=== PATIENT | female | born 1935 | race Caucasian/White ===

== ENCOUNTER 2016-10-14 11:04 | Outpatient (CLI) | payer MEDICARE | END 2016-10-14 11:05 | disposition home or self-care (01) | DX: E78.5 Hyperlipidemia, unspecified (principal) ==

== ENCOUNTER 2016-12-01 11:53 | Outpatient (CLI) | payer MEDICARE | END 2016-12-01 11:54 | disposition home or self-care (01) | DX: Z12.31 Encounter for screening mammogram for malignant neoplasm of breast (principal); R92.8 Other abnormal and inconclusive findings on diagnostic imaging of breast; Z80.3 Family history of malignant neoplasm of breast ==

== ENCOUNTER 2016-12-09 13:04 | Outpatient (CLI) | payer MEDICARE ==
--- NOTE | 2016-12-10 08:11 | Mammography Report ---
DIGITAL DIAGNOSTIC RIGHT MAMMOGRAM: 12/09/2016 CLINICAL INDICATION: Possible nodule on screening. TECHNIQUE: Right true lateral and spot compression views. COMPARISON: 12/01/2016, 08/20/2015, 02/15/2014, 08/18/2012, 10/22/2011, 08/15/2010. FINDINGS: The right breast again demonstrates scattered fibroglandular densities. A partially circu mscribed 8 mm nodule persists in the right upper central breast, approximately 9 cm from the nipple. No associated calcifications are seen. Please also refer to right breast ultrasound of the same day . IMPRESSION: SUSPICIOUS ABNORMALITY, WITH A SOLID HYPOECHOIC NODULE ON ULTRASOUND CORRELATING WITH TH E MAMMOGRAPHIC ABNORMALITY. RECOMMENDATION: Biopsy. The nodule appears amenable to ultrasound-guided core needle biopsy. BI-RADS category 4, suspicious abnormality. Results and recommendations discussed with the patient at the time of the examination, and called to Dr. Shukla on 12/09/2016. Biopsy is scheduled for 12/24/2016 at 9 a.m. STANDARD QUALIFYING STATEMENTS 1. This examination was reviewed with the aid of Computer-Aided Detection (CAD). 2. A negative or benign imaging report should not delay biopsy if clinically suspicious findings are present. Consider surgical consultation if warranted. More than 5% of cancers are not identified by i maging. 3. Dense breasts may obscure an underlying neoplasm. JOB #: [id number] EXT JOB #:[id number]
--- NOTE | 2016-12-10 08:22 | Ultrasound Report ---
RIGHT BREAST ULTRASOUND: 12/09/2016 CLINICAL INDICATION: Persistent nodular density on diagnostic mammogram. TECHNIQUE: Real-time scanning was performed with national sales representative static images obtained. FINDINGS: Ultrasound of the right upper central breast was performed. At the 12-o'clock position, a pproximately 7 cm from the nipple, there is a hypoechoic nodule, measuring 8 x 6 x 5 mm. There is so me peripheral vascularity and posterior acoustic shadowing. The appearance is suspicious. Biopsy is recommended. The nodule appears amenable to ultrasound-guided core needle biopsy. IMPRESSION: SUSPICIOUS ABNORMALITY, WITH A HYPOECHOIC NODULE CORRELATING WITH THE MAMMOGRAPHIC ABNOR MALITY. RECOMMENDATION: Biopsy. The nodule appears amenable to ultrasound-guided core needle biopsy. BI-RADS category 4, suspicious abnormality. Results and recommendations discussed with the patient at the time of the examination, and called to Dr. Shukla on 12/09/2016. Biopsy is scheduled for 12/24/2016 at 9 a.m. JOB #: [id number] EXT JOB #:[id number]
== END 2016-12-09 13:05 | disposition home or self-care (01) ==
LOC: DI 13:04
PROVIDERS: ATTEND Internal Medicine
DX: N63 Unspecified lump in breast (principal)
CPT/HCPCS: 76642; G0206

== ENCOUNTER 2016-12-24 09:39 | Outpatient (CLI) | payer MEDICARE ==
[2016-12-24] MEDS ORDERED: BUPIVACAINE 0.25%-EPI 1:200000 PF 10 ML VIAL SUBQ ONE (11:13)
[2016-12-24] MEDS ORDERED: BUFFERED LIDOCAINE 10 ML SYRINGE IU ONE (11:13)
== END 2016-12-24 09:40 | disposition home or self-care (01) ==
DX: C50.911 Malignant neoplasm of unspecified site of right female breast (principal)
CPT/HCPCS: 19083; G0206

== ENCOUNTER 2017-01-19 09:17 | Day surgery (SDC) | payer MEDICARE ==
[2017-01-19] MEDS ORDERED: LACTATED RINGERS 1,000 ML IV ONE ×3 (09:35→16:19)
[2017-01-19] MEDS ORDERED: BUFFERED LIDOCAINE 10 ML SYRINGE IU ONE (12:27)
[2017-01-19] MEDS ORDERED: BUPIVACAINE 0.5%-EPI 1:200000 PF 30 ML VIAL SUBQ ONE (12:27)
[2017-01-19] MEDS ORDERED: METHYLENE BLUE 100 MG/10 ML VIAL IVP ONE (14:13)
[2017-01-19] MEDS ORDERED: BUPIVACAINE 0.5%-EPI 1:200000 PF 10 ML VIAL SUBQ ONE ×2 (14:30)
[2017-01-19] MEDS ORDERED: ACETAMINOPHEN 1,000 MG/100 ML VIAL IV ONE (14:52)
[2017-01-19] MEDS ORDERED: ceFAZolin 1 GM VIAL IV ONE (14:52)
[2017-01-19] MEDS ORDERED: ONDANSETRON 4 MG/2 ML VIAL IVP ONE (14:52)
[2017-01-19] MEDS ORDERED: LIDOCAINE-MPF 2% 5 ML VIAL IM ONE (14:52)
[2017-01-19] MEDS ORDERED: fentaNYL 100 MCG/2 ML VIAL IVP ONE (14:52)
[2017-01-19] MEDS ORDERED: PROPOFOL 200 MG/20 ML VIAL IVP ONE (14:52)
[2017-01-19] MEDS ORDERED: METOCLOPRAMIDE 10 MG/2 ML VIAL IVP ONE (14:52)
[2017-01-19] MEDS ORDERED: DEXAMETHASONE 4 MG/ML VIAL IVP ONE (14:52)
[2017-01-19] MEDS ORDERED: MIDAZOLAM 2 MG/2 ML VIAL IVP ONE (14:52)
[2017-01-19] MEDS ORDERED: KETOROLAC 30 MG/ML VIAL IVP ONE (14:52)
[2017-01-19] MEDS ORDERED: HYDROmorphone 1 MG/ML SYRINGE ONE (16:46)
[2017-01-19] MEDS: oxyCOD/ACETAMIN 5 MG/325 MG TABLET PO ONE ×2 (17:24→17:45)
== END 2017-01-19 09:18 | disposition home or self-care (01) ==
PROC: C71L1ZZ Planar Nuclear Medicine Imaging of Upper Chest Lymphatics using Technetium 99m (Tc-99m) (ICD-10-PCS; 2017-01-19)
PROC: 0HBT0ZZ Excision of Right Breast, Open Approach (ICD-10-PCS; principal; 2017-01-19 12:00)
DX: C50.911 Malignant neoplasm of unspecified site of right female breast (principal); E78.5 Hyperlipidemia, unspecified; Z79.82 Long term (current) use of aspirin; Z88.0 Allergy status to penicillin; Z90.710 Acquired absence of both cervix and uterus
CPT/HCPCS: 19281; 19301; 38500; 76098; 78195; 88305; 88307; A9270; A9541; J0131; J1170; J7120

== ENCOUNTER 2017-07-13 14:08 | Outpatient (CLI) | payer MEDICARE ==
--- NOTE | 2017-07-13 14:57 | Mammography Report ---
DIGITAL DIAGNOSTIC RIGHT MAMMOGRAM: 07/13/2017 CLINICAL INDICATION: Six-month followup post lumpectomy for infiltrating ductal carcinoma. TECHNIQUE: Right CC, MLO, true lateral, spot magnification views. COMPARISON: 01/19/2017, 12/24/2016, 12/09/2016, 12/01/2016, 08/20/2015, 02/15/2014, 08/18/2012, 09/29, 08/15/2010. FINDINGS: The right breast demonstrates scattered fibroglandular densities. Postoperative changes i n the right upper central posterior breast are noted. A few punctate, typically benign calcification s are present. No suspicious masses, clustered microcalcifications, or regions of architectural dist ortion are identified. IMPRESSION: PROBABLE BENIGN POSTOPERATIVE CHANGES. RECOMMENDATION: Diagnostic bilateral mammogram in 6 months, to assure stability. BI-RADS category 3, probable benign findings. STANDARD QUALIFYING STATEMENTS 1. This examination was reviewed with the aid of Computer-Aided Detection (CAD). 2. A negative or benign imaging report should not delay biopsy if clinically suspicious findings are present. Consider surgical consultation if warranted. More than 5% of cancers are not identified by delfina orosco. 3. Dense breasts may obscure an underlying neoplasm. JOB #: [id number] EXT JOB #:
== END 2017-07-13 14:09 | disposition home or self-care (01) ==
LOC: DI 14:08
PROVIDERS: ATTEND Internal Medicine Hematology & Oncology
DX: C50.811 Malignant neoplasm of overlapping sites of right female breast (principal)

== ENCOUNTER 2017-08-18 09:35 | Outpatient (CLI) | payer MEDICARE ==
[2017-08-18 17:29] LABS: BASOPHILS % (AUTO) 0.7 %; EOSINOPHILS # (AUTO) 0.2 10^3/uL (0.0-0.7); EOSINOPHILS % (AUTO) 3.6 %; HCT - HEMATOCRIT 45.2 % (37.0-47.0); LYMPHOCYTES # (AUTO) 2.3 10^3/uL (1.5-3.5); LYMPHOCYTES % (AUTO) 36.2 %; MEAN CORPUSCULAR HEMOGLOBIN 31.4 pg (27.0-31.0); MEAN CORPUSCULAR HGB CONC 33.3 g/dL (32.0-36.0); MEAN CORPUSCULAR VOLUME 94.3 fL (81.0-99.0); MEAN PLATELET VOLUME 8.3 fL (7.9-10.8); MONOCYTES # (AUTO) 0.5 10^3/uL (0.0-1.0); MONOCYTES % (AUTO) 8.5 %; NEUTROPHILS # (AUTO) 3.2 10^3/uL (1.5-6.6); NUCLEATED RED BLOOD CELLS AUTO 0.1 /100WBC; RED BLOOD COUNT 4.79 10^6/uL (4.20-5.40); RED CELL DISTRIBUTION WIDTH 13.1 % (12.0-15.0); UNCORRECTED WHITE BLOOD COUNT 6.2 x10^3/uL; WHITE BLOOD COUNT 6.2 x10^3/uL (4.8-10.8)
[2017-08-18 17:48] LABS: ALBUMIN/GLOBULIN RATIO 1.4 (1.0-2.2); BILIRUBIN,TOTAL 1.1 mg/dL (0.2-1.0); BUN - BLOOD UREA NITROGEN 19 mg/dL (6-20); CARBON DIOXIDE - CO2 28 mmol/L (21-32); CHLORIDE 106 mmol/L (101-111); CHOL/HDL RATIO 4.2 (<4.4); CHOLESTEROL 254 mg/dL; CREATININE 0.7 mg/dL (0.4-1.0); GFR - MDRD 80 (>89); GLUCOSE 93 mg/dL (70-100); HDL CHOLESTEROL 60 mg/dL; LDL/HDL RATIO 2.8 (<4.4); SODIUM 139 mmol/L (135-145); TOTAL PROTEIN 6.9 g/dL (6.7-8.2); TRIGLYCERIDES 131 mg/dL; VLDL CHOLESTEROL 26 mg/dL
== END 2017-08-18 09:36 | disposition home or self-care (01) ==
LOC: LAB.F 09:35
PROVIDERS: ATTEND Family Medicine
DX: C50.919 Malignant neoplasm of unspecified site of unspecified female breast (principal); E78.00 Pure hypercholesterolemia, unspecified
CPT/HCPCS: 36415; 80053; 80061; 85025

== ENCOUNTER 2017-09-15 11:12 | Outpatient (CLI) | payer MEDICARE | END 2017-09-15 11:13 | disposition home or self-care (01) | LOC: LAB 11:12 | PROVIDERS: ATTEND Family Medicine | DX: R53.83 Other fatigue (principal) | CPT/HCPCS: 36415; 84443 ==

== ENCOUNTER 2018-01-12 12:14 | Outpatient (CLI) | payer MEDICARE ==
--- NOTE | 2018-01-12 13:23 | Mammography Report ---
DIAGNOSTIC BILATERAL MAMMOGRAM: 01/12/2018 CLINICAL INDICATION: An 82-year-old with personal history of right breast cancer, status post lumpectomy, family history of breast cancer. TECHNIQUE: Bilateral CC and MLO views, right true lateral and spot magnification views. COMPARISON: 07/13/2017, 01/19/2017, 12/24/2016, 12/09/2016, 12/01/2016, 08/20/2015, 02/15/2014, 08/18/2012, 10/22/2011, 08/15/2010. FINDINGS: The breasts again demonstrate scattered fibroglandular densities bilaterally. Coarse and punctate, typically benign calcifications are present. Postoperative and posttreatment changes in the right breast are stable. No suspicious masses, clustered microcalcifications or regions of architectural distortion are identified. IMPRESSION: PROBABLE BENIGN POSTOPERATIVE AND POSTTREATMENT CHANGES IN THE RIGHT BREAST. RECOMMENDATION: Diagnostic right mammogram in 6 months. BIRADS CATEGORY 3 - PROBABLE BENIGN FINDINGS. STANDARD QUALIFYING STATEMENTS: 1. This examination was reviewed with the aid of Computer-Aided Detection (CAD). 2. A negative or benign imaging report should not delay biopsy if clinically suspicious findings are present. Consider surgical consultation if warranted. More than 5% of cancers are not identified by imaging. 3. Dense breasts may obscure an underlying neoplasm. TD: 01/12/2018 13:23
== END 2018-01-12 12:15 | disposition home or self-care (01) ==
LOC: DI 12:14
PROVIDERS: ATTEND Internal Medicine Hematology & Oncology
DX: D05.11 Intraductal carcinoma in situ of right breast (principal)
CPT/HCPCS: 77066

== ENCOUNTER 2018-03-04 06:54 | Day surgery (SDC) | payer MEDICARE ==
[~2018-03-04 06:54] MED LIST: CYCLOPENTOLATE 1% OPHTH DROPS 2 ML ONE; KETOROLAC 0.45% OPHTH DROPS ONE; PHENYLEPHRINE 2.5% OPHTH 2 ML DROPS ONE; PROPARACAINE 0.5% OPHTH DROPS 15 ML ONE
[2018-03-04] MEDS ORDERED: LACTATED RINGERS 500 ML IV ONE (07:00)
[2018-03-04] MEDS ORDERED: PROPARACAINE 0.5% OPHTH DROPS 15 ML RIGHTEYE ONE ×2 (07:15→08:10)
[2018-03-04] MEDS ORDERED: KETOROLAC 0.45% OPHTH DROPS RIGHTEYE ONE (07:15)
[2018-03-04] MEDS ORDERED: CYCLOPENTOLATE 1% OPHTH DROPS 2 ML RIGHTEYE ONE (07:15)
[2018-03-04] MEDS ORDERED: PHENYLEPHRINE 2.5% OPHTH 2 ML DROPS RIGHTEYE ONE (07:15)
[2018-03-04] MEDS ORDERED: BRIMONIDINE 0.2% OPHTH DROPS 5 ML ONE (07:25)
[2018-03-04] MEDS ORDERED: EPINEPHrine 1 MG/ML AMP ONE (07:25)
[2018-03-04] MEDS ORDERED: TRIAMCIN/MOXIFLOX OPHTHALMIC 0.6 ML VIAL IO ONE (07:25)
[2018-03-04] MEDS ORDERED: TIMOLOL 0.5% OPHTH DROPS ONE (07:25)
[2018-03-04] MEDS ORDERED: BSS/LIDOCAINE/EPINEPHRINE 1 ML SYRINGE ONE (07:26)
[2018-03-04] MEDS ORDERED: MIDAZOLAM 2 MG/2 ML VIAL IVP ONE (08:00)
[2018-03-04] MEDS ORDERED: EPINEPHrine 1 MG/ML AMP IR ONE (08:09)
[2018-03-04] MEDS ORDERED: BRIMONIDINE 0.2% OPHTH DROPS 5 ML OPTH ONE (08:09)
[2018-03-04] MEDS ORDERED: CHONDR SULF/HYALURONATE SYRINGE IO ONE (08:10)
[2018-03-04] MEDS ORDERED: BSS/LIDOCAINE/EPINEPHRINE 1 ML SYRINGE IO ONE (08:10)
[2018-03-04] MEDS ORDERED: TIMOLOL 0.5% OPHTH DROPS OPTH ONE ×2 (08:10)
[2018-03-04] MEDS ORDERED: VANCOMYCIN OPHTHALMI 8MG/0.8ML 8 MG/0.8 ML SYRINGE IO ONE (08:11)
[2018-03-04 08:32] VITALS: BP 118/66
--- NOTE | 2018-03-04 14:25 | OPERATIVE REPORT ---
DATE OF SERVICE: 03/04/2018 Physician: Zelalem Mckeon MD PREOPERATIVE DIAGNOSIS: Visually significant cataract, right eye. This was her first cataract surgery. POSTOPERATIVE DIAGNOSIS: Visually significant cataract, right eye. This was her first cataract surgery. PROCEDURE: Phacoemulsification with posterior chamber intraocular lens implant, right eye. SURGEON: Zelalem Mckeon MD ANESTHESIA: Monitored anesthesia care. COMPLICATIONS: None. OPERATIVE INDICATIONS: This is an 82-year-old woman with progressive vision loss in the right eye due to 2+ nuclear sclerotic, 3+ cortical and posterior polar cataract. Best corrected visual acuity was 20/30 with glare to 20/400 in the right eye. Indications for surgery were overall decrease in vision, difficulty seeing words on the computer screen, difficulty reading, difficulty seeing words closed caption or game scores on TV; difficulty seeing street signs, difficulty driving in low light or at night, difficulty driving at night because of headlights from other vehicles, and difficulty with glare or bright lights in any situation. She was consented at length concerning risks and benefits of cataract surgery after which she expressed a desire to proceed with surgery. OPERATIVE PROCEDURE: The patient was taken to OR #3 and placed under monitored anesthesia care. A surgical timeout was conducted confirming correct patient, correct procedure, and correct surgical site. She was given topical anesthesia and then prepped and draped in the usual sterile fashion. That was entered at the 12 and 9-o'clock positions. Intracameral Shugarcaine was injected into the anterior chamber, followed by Viscoat. A continuous-tear curvilinear capsulorrhexis was performed. Nucleus was hydrodissected and phacoemulsified. The cortex was evacuated using automated infusion aspiration. Provisc was injected in the capsular bag and a 22.0 diopter intraocular lens was inserted in the bag. Approximately 0.7 mL of a mixture of triamcinolone and moxifloxacin was injected subconjunctivally in the superior quadrant for infection and inflammation prophylaxis. Additionally, 0.3 mL of vancomycin was injected subconjunctivally as well. I and A was used to evacuate the viscoelastic material. The eye was inflated to physiologic pressure using balanced salt solution and found to be watertight. The patient was taken from the operating room in good condition and given postop instructions. TD: 03/04/2018 08:38
== END 2018-03-04 06:55 | disposition home or self-care (01) ==
LOC: SDS 06:54
PROVIDERS: ATTEND Ophthalmology
PROC: 08RJ3JZ Replacement of Right Lens with Synthetic Substitute, Percutaneous Approach (ICD-10-PCS; principal; 2018-03-04 08:00)
DX: H25.811 Combined forms of age-related cataract, right eye (principal); I10 Essential (primary) hypertension; Z79.82 Long term (current) use of aspirin
CPT/HCPCS: 66984; A9270; J3490; V2632

== ENCOUNTER 2018-04-29 08:22 | Day surgery (SDC) | payer MEDICARE ==
[~2018-04-29 08:22] MED LIST changes: +BRIMONIDINE 0.2% OPHTH DROPS 5 ML ONE; +BSS/LIDOCAINE/EPINEPHRINE 1 ML SYRINGE ONE; +EPINEPHrine 1 MG/ML AMP ONE; +TIMOLOL 0.5% OPHTH DROPS ONE; +TRIAMCIN/MOXIFLOX OPHTHALMIC 0.6 ML VIAL IO ONE; +VANCOMYCIN OPHTHALMI 8MG/0.8ML 8 MG/0.8 ML SYRINGE IO ONE
[2018-04-29] MEDS ORDERED: CYCLOPENTOLATE 1% OPHTH DROPS 2 ML LEFTEYE ONE (08:50)
[2018-04-29] MEDS ORDERED: PROPARACAINE 0.5% OPHTH DROPS 15 ML LEFTEYE ONE ×2 (08:50→09:42)
[2018-04-29] MEDS ORDERED: PHENYLEPHRINE 2.5% OPHTH 2 ML DROPS LEFTEYE ONE (08:50)
[2018-04-29] MEDS ORDERED: KETOROLAC 0.45% OPHTH DROPS LEFTEYE ONE (08:50)
[2018-04-29] MEDS ORDERED: LACTATED RINGERS 500 ML IV ONE (09:01)
[2018-04-29] MEDS ORDERED: fentaNYL 100 MCG/2 ML VIAL IVP ONE (09:40)
[2018-04-29] MEDS ORDERED: MIDAZOLAM 2 MG/2 ML VIAL IVP ONE (09:40)
[2018-04-29] MEDS ORDERED: CHONDR SULF/HYALURONATE SYRINGE IO ONE (09:41)
[2018-04-29] MEDS ORDERED: TIMOLOL 0.5% OPHTH DROPS OPTH ONE (09:41)
[2018-04-29] MEDS ORDERED: EPINEPHrine 1 MG/ML AMP IR ONE (09:41)
[2018-04-29] MEDS ORDERED: BRIMONIDINE 0.2% OPHTH DROPS 5 ML OPTH ONE (09:41)
[2018-04-29] MEDS ORDERED: BSS/LIDOCAINE/EPINEPHRINE 1 ML SYRINGE IO ONE ×2 (09:42)
[2018-04-29] MEDS ORDERED: TRIAMCIN/MOXIFLOX/VANCO 1 ML VIAL IO ONE ×2 (09:42)
[2018-04-29] MEDS ORDERED: VANCOMYCIN OPHTHALMI 8MG/0.8ML 8 MG/0.8 ML SYRINGE IO ONE ×2 (09:42)
[2018-04-29] MEDS ORDERED: LACTATED RINGERS 1,000 ML IV ONE (10:00)
[2018-04-29 10:23] VITALS: BP 106/73
--- NOTE | 2018-04-29 13:27 | OPERATIVE REPORT ---
DATE OF SERVICE: 04/29/2018 Physician: Zelalem Mckeon MD PREOPERATIVE DIAGNOSIS: Visually significant cataract, left eye. Cataract surgery was performed on the right eye on 03/04/2018. POSTOPERATIVE DIAGNOSIS: Visually significant cataract, left eye. PROCEDURE: Phacoemulsification with posterior chamber intraocular lens implant, left eye. SURGEON: Zelalem Mckeon MD. ANESTHESIA: Monitored anesthesia care. COMPLICATIONS: None. OPERATIVE INDICATIONS: This is an 82-year-old woman with progressive vision loss in the left eye due to 2+ nuclear sclerotic and 1+ cortical cataract. Best corrected visual acuity was 20/25 with glare to 20/50 in the left eye. INDICATIONS FOR SURGERY 1. Overall decrease in vision. 2. Difficulty seeing words on a computer screen. 3. Difficulty reading. 4. Difficulty seeing words, closed captions or game scores on TV. 5. Difficulty seeing street signs. 6. Difficulty driving in low light or at night. 7. Difficulty driving at night because of headlights from other vehicles. 8. Difficulty with glare or bright lights in any situation. INFORMED CONSENT: She was consented at length concerning risks and benefits of cataract surgery, aft er which she expressed a desire to proceed with surgery. OPERATIVE PROCEDURE: Patient was taken into OR #3 and placed under monitored anesthesia care. A rafita gical timeout was conducted confirming correct patient, correct procedure, and correct surgical site. She was given topical anesthesia, and then prepped and draped in usual sterile fashion. The eye wa s entered at the 6 and 3-o'clock positions. Intracameral Shugarcaine was injected into the anterior chamber, followed by Viscoat. A continuous-tear curvilinear capsulorrhexis was performed. The nucle us was hydrodissected and phacoemulsified. The cortex was evacuated using automated infusion and asp iration. Provisc was injected in the capsular bag and a 20.0-diopter intraocular lens was inserted i n the bag. Approximately 0.7 mL of a mixture of triamcinolone, moxifloxacin, and vancomycin was inje cted subconjunctivally in the superior quadrant for infection and inflammation prophylaxis. I and A was used to evacuate the viscoelastic materials. The eye was inflated to physiologic pressure using a balanced salt solution and found to be watertight. Patient was taken from the operating room in go od condition and given postoperative instructions. TD: 04/29/2018 10:04
== END 2018-04-29 08:23 | disposition home or self-care (01) ==
LOC: SDS 08:22
PROVIDERS: ATTEND Ophthalmology
PROC: 08RK3JZ Replacement of Left Lens with Synthetic Substitute, Percutaneous Approach (ICD-10-PCS; principal; 2018-04-29 09:30)
DX: H25.812 Combined forms of age-related cataract, left eye (principal); H35.3130 Nonexudative age-related macular degeneration, bilateral, stage unspecified
CPT/HCPCS: 66984; A9270; J3490; J7120; V2632

== ENCOUNTER 2018-07-12 13:01 | Outpatient (CLI) | payer MEDICARE ==
--- NOTE | 2018-07-12 16:44 | Mammography Report ---
Reason: R BREAST CANCER Procedure Date: 07/12/2018 Accession Number: [id number] / [id number] Procedure: JAVIER - Diagnostic Dig RT CPT Code: FULL RESULT: EXAM: Diagnostic Dig RT DATE: 07/12/2018 2:21 PM CLINICAL HISTORY: Right breast cancer status post lumpectomy TECHNIQUE: Unilateral right breast mammogram COMPARISON: 01/19/2018, 07/15/2017, , 10/23/2016, 10/16/2016, 09/03/2016, 08/27/2016 and 02/15/2016 FINDINGS: There are scattered fibroglandular densities. Postsurgical changes in the right breast are stable. No new dominant mass architectural distortion, skin thickening, suspicious microcalcifications or interval change. IMPRESSION: Benign findings RECOMMENDATION: Follow-up bilateral mammography in 6 months. BIRADS CATEGORY 2: Benign findings STANDARD QUALIFYING STATEMENTS: 1. This examination was reviewed with the aid of Computer-Aided Detection (CAD). 2. A negative or benign imaging report should not delay biopsy if clinically suspicious findings are present. Consider surgical consultation if warrented. More than 5% of cancers are not identified by imaging. 3. Dense breasts may obscure an underlying neoplasm.
== END 2018-07-12 13:02 | disposition home or self-care (01) ==
LOC: DI 13:01
PROVIDERS: ATTEND Internal Medicine Hematology & Oncology
DX: C50.811 Malignant neoplasm of overlapping sites of right female breast (principal)

== ENCOUNTER 2019-01-11 12:35 | Outpatient (CLI) | payer MEDICARE ==
--- NOTE | 2019-01-11 13:56 | Mammography Report ---
Reason: R BREAST CANCER Procedure Date: 01/11/2019 Accession Number: [id number] / [id number] Procedure: JAVIER - Diagnostic Dig Bilat CPT Code: FULL RESULT: EXAM: Diagnostic Dig Bilat DATE: 01/11/2019 1:31 PM CLINICAL HISTORY: Status post right breast lumpectomy for breast cancer. TECHNIQUE: (B) - Bilateral CC and MLO views were obtained. In addition, bilateral CC and MLO 3-D mammography was performed. COMPARISON: 01/12/2018 PARENCHYMAL PATTERN: (A) - The breasts demonstrate scattered fibroglandular densities bilaterally. FINDINGS: Right breast postoperative architectural distortion and associated benign dystrophic calcification. There are no suspicious masses, pleomorphic calcifications, or other suspicious finding. IMPRESSION: Benign findings. BI-RADS category 2. RECOMMENDATION: (ANNUAL) - Recommend routine annual screening mammography. BI-RADS CATEGORY: (2) - Benign Findings. STANDARD QUALIFYING STATEMENTS: 1. This examination was not reviewed with the aid of Computer-Aided Detection (CAD). 2. A negative or benign imaging report should not preclude biopsy if clinically suspicious findings are present. 3. Dense breasts may obscure an underlying neoplasm. 4. This examination was reviewed with the aid of 3D breast imaging (tomosynthesis).
== END 2019-01-11 12:36 | disposition home or self-care (01) ==
LOC: DI 12:35
PROVIDERS: ATTEND Internal Medicine Hematology & Oncology
DX: C50.811 Malignant neoplasm of overlapping sites of right female breast (principal)
CPT/HCPCS: 77066

== ENCOUNTER 2020-04-13 09:50 | Outpatient (CLI) | payer MEDICARE ==
--- NOTE | 2020-04-16 09:19 | Mammography Report ---
BILATERAL DIGITAL SCREENING MAMMOGRAM 3D/2D: 04/13/2020 CLINICAL: Routine screening. Personal history of right breast cancer. Family history of breast cancer . Comparison is made to exams dated: 01/11/2019 mammogram, 07/12/2018 mammogram, 01/12/2018 mammogram, 1 mammogram, 01/19/2017 mammogram, and 12/24/2016 mammogram - [facility]. Th ere are scattered fibroglandular elements in both breasts. No significant masses, calcifications, or other findings are seen in either breast. There has been no significant interval change. IMPRESSION: NEGATIVE There is no mammographic evidence of malignancy. A 1 year screening mammogram is recommended. This exam was interpreted at Station ID: [id number]. NOTE: For mammograms, a report in lay terms will be sent to the patient. Approximately 15% of breast malignancies will not be visualized mammographically. In the management of a palpable breast mass, a negative mammogram must not discourage biopsy of a clinically suspicious lesion. Electronically Signed By: Sheng Ashton M.D. [email or web address]:04/13/2020 13:15:29 ACR BI-RADS Category 1: Negative 3341F PARENCHYMAL PATTERN: (A) - The breast(s) demonstrate(s) scattered fibroglandular densities. BI-RADS CATEGORY: (1) - 1 RECOMMENDATION: (ANNUAL) - Recommend routine annual screening mammography. [id number] 1 year screening LATERALITY: (B)
== END 2020-04-13 09:51 | disposition home or self-care (01) ==
LOC: DI 09:50
PROVIDERS: ATTEND Internal Medicine Hematology & Oncology
DX: Z12.31 Encounter for screening mammogram for malignant neoplasm of breast (principal); Z08 Encounter for follow-up examination after completed treatment for malignant neoplasm; Z85.3 Personal history of malignant neoplasm of breast; Z80.3 Family history of malignant neoplasm of breast
CPT/HCPCS: 77063; 77067

== ENCOUNTER 2020-07-20 08:00 | Outpatient (CLI) | payer MEDICARE ==
[2020-07-20 11:49] LABS: ABNORMAL LYMPHS % (MANUAL) 0 %
[2020-07-20 18:21] LABS: BASOPHILS % (AUTO) 0.5 %; EOSINOPHILS % (AUTO) 1.9 %; HGB - HEMOGLOBIN 15.7 g/dL (12.0-16.0); MEAN CORPUSCULAR HEMOGLOBIN 31.8 pg (27.0-31.0); MEAN CORPUSCULAR HGB CONC 32.3 g/dL (32.0-36.0); MEAN CORPUSCULAR VOLUME 98.4 fL (81.0-99.0); MEAN PLATELET VOLUME 10.2 fL (7.9-10.8); MONOCYTES % (AUTO) 7.4 %; NEUTROPHILS % (AUTO) 56.9 %; PLT - PLATELET COUNT 283 10^3/uL (130-450); RED BLOOD COUNT 4.94 10^6/uL (4.20-5.40); RED CELL DISTRIBUTION WIDTH 13.1 % (12.0-15.0)
[2020-07-20 19:07] LABS: ALBUMIN 4.1 g/dL (3.2-5.5); ALBUMIN/GLOBULIN RATIO 1.3 (1.0-2.2); ALKALINE PHOSPHATASE 93 IU/L (42-121); ALT ALANINE AMINOTRANSFERASE 24 IU/L (10-60); AST ASPARTATE AMINOTRANSFERASE 23 IU/L (10-42); BUN - BLOOD UREA NITROGEN 20 mg/dL (6-20); CALCIUM 9.3 mg/dL (8.5-10.3); CARBON DIOXIDE - CO2 27 mmol/L (21-32); CHLORIDE 104 mmol/L (101-111); CHOL/HDL RATIO 4.7 (<4.4); CHOLESTEROL 271 mg/dL; CREATININE 0.9 mg/dL (0.4-1.0); GLUCOSE 91 mg/dL (70-100); HDL CHOLESTEROL 58 mg/dL; LDL CHOLESTEROL,CALCULATED 176 mg/dL; SODIUM 139 mmol/L (135-145); TOTAL PROTEIN 7.2 g/dL (6.7-8.2); VLDL CHOLESTEROL 37 mg/dL
[2020-07-20 20:25] LABS: LYMPHOCYTES % (MANUAL) 34 %
[2020-07-20 20:27] LABS: BAND NEUTROPHILS % (MANUAL) 1 %; BASOPHILS # (MANUAL) 0.1 10^3/uL (0-0.1); BASOPHILS % (MANUAL) 1 %; LYMPHOCYTES # (MANUAL) 2.5 10^3/uL (1.5-3.5); MONOCYTES # (MANUAL) 0.5 10^3/uL (0.0-1.0)
[2020-07-20 20:29] LABS: PLATELET ESTIMATE, MANUAL NORMAL (130-450,000) (NORMAL); PLATELET MORPHOLOGY NORMAL APPEARANCE (NORMAL); RBC MORPHOLOGY (MULTIPLE) NORMAL APPEARANCE (NORMAL)
[2020-07-20 20:32] LABS: WHITE BLOOD COUNT 7.4 x10^3/uL (4.8-10.8)
[2020-07-20 21:53] LABS: DIFFERENTIAL COMMENT MANUAL DIFFERENTIAL
== END 2020-07-20 23:59 | disposition home or self-care (01) ==
LOC: LAB.WCP 08:00
PROVIDERS: ATTEND Family Medicine
DX: E78.00 Pure hypercholesterolemia, unspecified (principal); R53.83 Other fatigue; R23.8 Other skin changes
CPT/HCPCS: 36415; 80053; 80061; 83615; 83721; 84443; 85025

== ENCOUNTER 2020-07-31 10:43 | Outpatient (CLI) | payer MEDICARE ==
--- NOTE | 2020-07-31 12:07 | DEXA Report ---
PROCEDURE: Dexa Spine and/or Hip INDICATIONS: BONE DISORDER TECHNIQUE: Dual energy x-ray absorptiometry (DXA) was performed on a [employer] System. Regions measur ed are the AP Spine, femoral neck, and if needed forearm. COMPARISON: Comparison 04/30/2017 similar bone mineral density evaluation reviewed. FINDINGS: Lumbar Spine: Bone Mineral Density 0.974 g/cm/cm,T score -1.7, osteopenia, and this represents a slight interval improvement in bone mineral density from the comparison study 04/30/2017 Left Hip: Bone Mineral Density 0.779 g/cm/cm,T score -1.8, osteopenia, and this represents a statistically sig nificant 4.8% reduction in bone mineral density at the left hip region overall. Left Femoral Neck: Bone Mineral Density 0.802 g/cm/cm, T score -1.7, osteopenia (T score greater or equal to -1.0: NORMAL) (T score from -1.1 to -2.4: OSTEOPENIA) (T score less than or equal to -2.5 to: OSTEOPOROSIS) Impression: Osteopenia at the lumbosacral spine, left hip overall and the left femoral neck. The lumb osacral spine bone mineral density has not significantly changed but there has been a reduction of meredith ne mineral density at the left hip area by approximately 4.8% from the comparison study in April. Patients with diagnosis of osteoporosis or osteopenia should have regular bone mineral density assess ment. For those eligible for Medicare, routine testing is allowed once every 2 years. Testing frequ ency can be increased for patients who have rapidly progressing disease or for those who are receivin g medical therapy to restore bone mass. Reviewed by: Eddie Parra MD on 07/31/2020 12:06 PM PST Approved by: Eddie Parra MD on 07/31/2020 12:06 PM PST Station ID: [id number]
== END 2020-07-31 10:44 | disposition home or self-care (01) ==
LOC: DI 10:43
PROVIDERS: ATTEND Family Medicine
DX: M85.89 Other specified disorders of bone density and structure, multiple sites (principal)
CPT/HCPCS: 77080

== ENCOUNTER 2021-06-10 12:44 | Outpatient (CLI) | payer MEDICARE ==
--- NOTE | 2021-06-11 13:01 | Mammography Report ---
BILATERAL DIGITAL DIAGNOSTIC MAMMOGRAM 3D/2D: 06/10/2021 CLINICAL: Routine screening. Personal history of right breast cancer. Comparison is made to exams dated: 01/11/2019 mammogram, 07/12/2018 mammogram, 01/12/2018 mammogram, 1 mammogram, 01/19/2017 mammogram, and 01/19/2017 localization - [facility]. There are scattered fibroglandular elements in both breasts. There is a 0.8 cm asymmetry with an indistinct margin in the right breast middle depth superior regio n seen on the mediolateral oblique view only 10 cm from the nipple. This is not seen in additional v iews. No other significant masses, calcifications, or other findings are seen in either breast. IMPRESSION: BENIGN The 0.8 cm asymmetry in the right breast is consistent with fibroglandular tissue and is benign. There is no mammographic evidence of malignancy. Return to annual mammogram screening schedule is rec ommended. This exam was interpreted at Station ID: [id number]. NOTE: For mammograms, a report in lay terms will be sent to the patient. Approximately 15% of breast malignancies will not be visualized mammographically. In the management of a palpable breast mass, a negative mammogram must not discourage biopsy of a clinically suspicious lesion. Electronically Signed By: Addison Bliss acr/:06/10/2021 17:27:20 ACR BI-RADS Category 2: Benign Finding(s) 3342F PARENCHYMAL PATTERN: (A) - The breast(s) demonstrate(s) scattered fibroglandular densities. BI-RADS CATEGORY: (2) - 2 Mammogram [id number] return to screening LATERALITY: (B)
== END 2021-06-10 12:45 | disposition home or self-care (01) ==
LOC: DI 12:44
PROVIDERS: ATTEND Internal Medicine Hematology & Oncology
DX: C50.811 Malignant neoplasm of overlapping sites of right female breast (principal)

== ENCOUNTER 2021-11-05 08:00 | Outpatient (CLI) | payer MEDICARE ==
--- NOTE | 2021-11-05 16:17 | XRAY Report ---
PROCEDURE: Tib/Fib RT INDICATIONS: PAIN IN RIGHT LOWER LEG TECHNIQUE: 2 views of the tibia and fibula were acquired. COMPARISON: None. FINDINGS: BONES: No acute, displaced fracture or dislocation. SOFT TISSUES: No focal abnormality. IMPRESSION: 1.No acute osseous abnormality. If there is clinical concern for proximal injury, consider dedicated imaging of the knee. Reviewed by: Miguel Angel Pa MD on 11/05/2021 4:16 PM PST Approved by: Miguel Angel Pa MD on 11/05/2021 4:16 PM PST Station ID: [id number]
== END 2021-11-05 23:59 | disposition home or self-care (01) ==
LOC: DI.S 08:00
PROVIDERS: ATTEND Registered Nurse
DX: M79.661 Pain in right lower leg (principal)

== ENCOUNTER 2021-11-14 10:52 | Outpatient (CLI) | payer MEDICARE ==
--- NOTE | 2021-11-14 12:16 | XRAY Report ---
PROCEDURE: Knee 3 View RT INDICATIONS: PAIN IN RIGHT LOWER LEG TECHNIQUE: 3 views of the right knee(s) were acquired. COMPARISON: Lower leg radiograph dated 11/05/2021. FINDINGS: Bones: Deformity involving proximal fibular shaft is seen suggestive of acute to subacute fracture in this area. No significant displacement is seen. No other fracture or dislocation. Mild to moderate t ricompartmental osteoarthritis is seen. No suspicious bony lesions. Soft tissues: No joint effusion. No suspicious soft tissue calcifications. IMPRESSION: Acute to subacute appearing nondisplaced fracture involving proximal fibular shaft. No ot her fracture or dislocation. Mild to moderate tricompartmental osteoarthritis. Reviewed by: Jim Ventura MD on 11/14/2021 12:15 PM PST Approved by: Jim Ventura MD on 11/14/2021 12:15 PM PST Station ID: [id number]
== END 2021-11-14 10:53 | disposition home or self-care (01) ==
LOC: DI.S 10:52
PROVIDERS: ATTEND Registered Nurse
DX: S82.831A Other fracture of upper and lower end of right fibula, initial encounter for closed fracture (principal)

== ENCOUNTER 2021-12-17 12:27 | Outpatient (CLI) | payer MEDICARE ==
[2021-12-17 12:52] LABS: BASOPHILS % (AUTO) 0.4 %; EOSINOPHILS # (AUTO) 0.2 10^3/uL (0.0-0.7); EOSINOPHILS % (AUTO) 1.8 %; HCT - HEMATOCRIT 43.5 % (37.0-47.0); HGB - HEMOGLOBIN 14.9 g/dL (12.0-16.0); LYMPHOCYTES # (AUTO) 2.5 10^3/uL (1.5-3.5); LYMPHOCYTES % (AUTO) 27.7 %; MEAN CORPUSCULAR HEMOGLOBIN 32.6 pg (27.0-31.0); MEAN CORPUSCULAR HGB CONC 34.3 g/dL (32.0-36.0); MEAN CORPUSCULAR VOLUME 95.2 fL (81.0-99.0); MEAN PLATELET VOLUME 9.4 fL (7.9-10.8); MONOCYTES # (AUTO) 1.1 10^3/uL (0.0-1.0); NEUTROPHILS # (AUTO) 5.2 10^3/uL (1.5-6.6); NEUTROPHILS % (AUTO) 57.9 %; PLT - PLATELET COUNT 276 10^3/uL (130-450); RED BLOOD COUNT 4.57 10^6/uL (4.20-5.40); RED CELL DISTRIBUTION WIDTH 12.6 % (12.0-15.0)
[2021-12-17 13:11] LABS: ALBUMIN 3.9 g/dL (3.2-5.5); ALBUMIN/GLOBULIN RATIO 1.3 (1.0-2.2); ALKALINE PHOSPHATASE 99 IU/L (42-121); ALT ALANINE AMINOTRANSFERASE 30 IU/L (10-60); AST ASPARTATE AMINOTRANSFERASE 28 IU/L (10-42); BILIRUBIN,TOTAL 0.8 mg/dL (0.2-1.0); BUN - BLOOD UREA NITROGEN 29 mg/dL (6-20); CALCIUM 9.6 mg/dL (8.5-10.3); CARBON DIOXIDE - CO2 24 mmol/L (21-32); CHLORIDE 104 mmol/L (101-111); CHOL/HDL RATIO 4.7 (<4.4); CHOLESTEROL 256 mg/dL; GFR - MDRD 53 (>89); GLUCOSE 106 mg/dL (70-100); HDL CHOLESTEROL 54 mg/dL; LDL CHOLESTEROL,CALCULATED 155 mg/dL; LDL/HDL RATIO 2.9 (<4.4); POTASSIUM 4.1 mmol/L (3.5-5.0); SODIUM 138 mmol/L (135-145); TRIGLYCERIDES 237 mg/dL; VLDL CHOLESTEROL 47 mg/dL
--- NOTE | 2021-12-17 14:52 | XRAY Report ---
PROCEDURE: Tib/Fib RT INDICATIONS: FIBULA FRACTURE TECHNIQUE: 2 views of the tibia and fibula were acquired. COMPARISON: 11/14/2021 FINDINGS: Bones: Mildly displaced proximal fibular fracture is stable in alignment. Callus formation noted at f racture site compatible with evolution of healing. Soft tissues: No suspicious soft tissue calcifications or masses. IMPRESSION: Subacute proximal right fibular fracture stable in alignment. Reviewed by: Ara Carrasco MD, PhD on 12/17/2021 2:51 PM PDT Approved by: Ara Carrasco MD, PhD on 12/17/2021 2:51 PM PDT Station ID: [id number]
--- NOTE | 2021-12-17 14:52 | XRAY Report ---
PROCEDURE: Knee 3 View RT INDICATIONS: FIBULA FX TECHNIQUE: 3 views of the right knee(s) were acquired. COMPARISON: 11/14/2021. FINDINGS: Bones: Subacute, segmented fracture of the proximal fibula is stable in alignment. Callus formation f racture site noted compatible with evolution of healing.. Soft tissues: No joint effusion. No suspicious soft tissue calcifications. IMPRESSION: Subacute proximal fibula fracture stable in alignment. Reviewed by: Ara Crarasco MD, PhD on 12/17/2021 2:50 PM PDT Approved by: Ara Carrasco MD, PhD on 12/17/2021 2:50 PM PDT Station ID: [id number]
== END 2021-12-17 12:28 | disposition home or self-care (01) ==
LOC: DI.WOS 12:27
PROVIDERS: ATTEND Physician Assistant
DX: S82.831D Other fracture of upper and lower end of right fibula, subsequent encounter for closed fracture with routine healing (principal); M89.9 Disorder of bone, unspecified; E78.00 Pure hypercholesterolemia, unspecified
CPT/HCPCS: 36415; 80053; 80061; 83721; 85025

== ENCOUNTER 2021-12-20 14:29 | Outpatient (CLI) | payer MEDICARE ==
--- NOTE | 2021-12-20 15:49 | DEXA Report ---
PROCEDURE: Dexa Spine and/or Hip INDICATIONS: POST MENOPAUSAL TECHNIQUE: Dual energy x-ray absorptiometry (DXA) was performed on a [employer] System. Regions measur ed are the AP Spine, femoral neck, and if needed forearm. COMPARISON: 07/31/2020. FINDINGS: Lumbar Spine: Bone Mineral Density 1.033 g/cm/cm,T score -1.2. There is interval 6.1% increase in total lumbar b one mineral density since previous study. Left Hip: Bone Mineral Density 0.803 g/cm/cm,T score -1.6. There is interval 3.1% increase in total left hip b one mineral density. Left Femoral Neck: Bone Mineral Density 0.803 g/cm/cm, T score -1.7. (T score greater or equal to -1.0: NORMAL) (T score from -1.1 to -2.4: OSTEOPENIA) (T score less than or equal to -2.5 to: OSTEOPOROSIS) Impression: Osteopenia. Patients with diagnosis of osteoporosis or osteopenia should have regular bone mineral density assess ment. For those eligible for Medicare, routine testing is allowed once every 2 years. Testing frequ ency can be increased for patients who have rapidly progressing disease or for those who are receivin g medical therapy to restore bone mass. Reviewed by: Jim Ventura MD on 12/20/2021 3:48 PM PDT Approved by: Jim Ventura MD on 12/20/2021 3:48 PM PDT Station ID: [id number]
== END 2021-12-20 14:30 | disposition home or self-care (01) ==
LOC: DI 14:29
PROVIDERS: ATTEND Family Medicine
DX: M85.89 Other specified disorders of bone density and structure, multiple sites (principal)

== ENCOUNTER 2022-01-07 06:00 | Outpatient (CLI) | payer MEDICARE ==
--- NOTE | 2022-01-07 17:23 | XRAY Report ---
PROCEDURE: Tib/Fib RT INDICATIONS: FIBULA FRACTURE TECHNIQUE: 2 views of the tibia and fibula were acquired. COMPARISON: 12/17/2021 FINDINGS: Bones: Interval progress in healing of what appears to be a segmental proximal fibular shaft fracture with definite increase in callus formation. No change in alignment. No suspicious bony lesions. Soft tissues: No suspicious soft tissue calcifications or masses. IMPRESSION: Interval progress in healing of a proximal fibular shaft fracture. Reviewed by: Earl Hawkins MD on 01/07/2022 5:21 PM PDT Approved by: Earl Hawkins MD on 01/07/2022 5:21 PM PDT Station ID: [id number]
== END 2022-01-07 23:59 | disposition home or self-care (01) ==
LOC: DI.WOS 06:00
PROVIDERS: ATTEND Physician Assistant
DX: S82.831D Other fracture of upper and lower end of right fibula, subsequent encounter for closed fracture with routine healing (principal)

== ENCOUNTER 2022-01-14 15:01 | Emergency (ER) | payer MEDICARE ==
[2022-01-14 15:36] LABS: BILIRUBIN,URINE NEGATIVE (NEGATIVE); GLUCOSE, URINE (UA) NEGATIVE (NEGATIVE); KETONES,URINE (UA) NEGATIVE (NEGATIVE); LEUKOCYTE ESTERASE, URINE SMALL (NEGATIVE); NITRITE,URINE POSITIVE (NEGATIVE); OCCULT BLOOD,URINE LARGE (NEGATIVE); PROTEIN,URINE 100 mg/dL (NEGATIVE); UROBILINOGEN,URINE 1 (NORMAL) E.U./dL (NORMAL)
[2022-01-14 15:40] LABS: CLARITY,URINE CLOUDY (CLEAR)
[2022-01-14 15:47] LABS: BACTERIA,URINE Moderate /HPF (None Seen); RBC,URINE TNTC /HPF (0-5); SQUAMOUS EPITHELIAL CELL,UR FEW Squamous (<= Few)
[2022-01-14 15:47] LABS: BASOPHILS # (AUTO) 0.1 10^3/uL (0.0-0.1); BASOPHILS % (AUTO) 0.3 %; EOSINOPHILS % (AUTO) 0.1 %; HCT - HEMATOCRIT 45.8 % (37.0-47.0); HGB - HEMOGLOBIN 15.4 g/dL (12.0-16.0); LYMPHOCYTES # (AUTO) 0.4 10^3/uL (1.5-3.5); LYMPHOCYTES % (AUTO) 2.5 %; MEAN CORPUSCULAR HEMOGLOBIN 31.9 pg (27.0-31.0); MEAN CORPUSCULAR HGB CONC 33.6 g/dL (32.0-36.0); MEAN CORPUSCULAR VOLUME 94.8 fL (81.0-99.0); MEAN PLATELET VOLUME 9.7 fL (7.9-10.8); MONOCYTES # (AUTO) 0.4 10^3/uL (0.0-1.0); MONOCYTES % (AUTO) 2.3 %; NEUTROPHILS # (AUTO) 15.6 10^3/uL (1.5-6.6); NEUTROPHILS % (AUTO) 94.3 %; PLT - PLATELET COUNT 262 10^3/uL (130-450); RED BLOOD COUNT 4.83 10^6/uL (4.20-5.40); RED CELL DISTRIBUTION WIDTH 12.8 % (12.0-15.0); WHITE BLOOD COUNT 16.5 x10^3/uL (4.8-10.8)
[2022-01-14 16:11] LABS: ALBUMIN 4.2 g/dL (3.2-5.5); ALBUMIN/GLOBULIN RATIO 1.4 (1.0-2.2); BILIRUBIN,TOTAL 1.4 mg/dL (0.2-1.0); CREATININE 1.1 mg/dL (0.4-1.0); TOTAL PROTEIN 7.2 g/dL (6.7-8.2)
[2022-01-14 16:13] LABS: CALCIUM 9.8 mg/dL (8.5-10.3)
--- NOTE | 2022-01-14 16:35 | ED Physician Documentation ---
PD HPI ABD PAIN - Stated complaint Stated Complaint: BODY PX,CHILLS - Chief complaint Chief Complaint: Abd Pain - History obtained from History obtained from: Patient - History of Present Illness Timing - onset: How many days ago (2) Timing - duration: Days (2) Timing - details: Gradual onset, Still present (increased significantly today, with fever and chills.) Quality: Aching, Sharp, Pain Location: LLQ Radiation: Left flank Improved by: Laying still. No: Eating Worsened by: Moving, Palpation. No: Eating, Breathing Associated symptoms: Fever (subjectively today), Nausea, Constipation (for 3 day s), Near syncope / syncope, Loss of appetite. No: Vomiting, Hematochezia, Dysuria Similar symptoms before: Has not had sx before Recently seen: Not recently seen Review of Systems Constitutional: reports: Fever, Chills, Myalgias Nose: denies: Rhinorrhea / runny nose, Congestion Throat: reports: Sore throat Cardiac: denies: Chest pain / pressure Respiratory: denies: Cough GI: reports: Abdominal Pain, Nausea, Constipation. denies: Vomiting, Diarrhea, Bloody / black stool : denies: Dysuria, Frequency Skin: denies: Rash, Lesions Neurologic: reports: Generalized weakness. denies: Focal weakness, Numbness, Altered mental status, Headache PD PAST MEDICAL HISTORY - Past Medical History Cardiovascular: High cholesterol Respiratory: None Endocrine/Autoimmune: None GI: None : None HEENT: Chronic vision loss, Chronic sinusitis Psych: None Musculoskeletal: Osteoarthritis, Fibromyalgia Derm: Other - Past Surgical History General: Colonoscopy /E BUSINESS MANAGER: Hysterectomy, Other Derm: Skin cancer surgery - Present Medications Home Medications: Ambulatory Orders Medication Instructions Recorded Confirmed ALPRAZolam [Alprazolam] 0.25 mg PO QPM PRN 05/15/17 01/14/22 Calcium Carbonate/Vitamin D3 1 each PO DAILY 03/03/18 01/14/22 [Calcium 250-Vit D3 125 Tablet] - Allergies Allergies/Adverse Reactions: Allergies Allergy/AdvReac Type Severity Reaction Status Date / Time dust AdvReac Unknown Respiratory Uncoded 01/14/22 15:12 mold AdvReac Unknown Headache Uncoded 01/14/22 15:12 PD ED PE NORMAL - Vitals Vital signs reviewed: Yes - General General: Alert and oriented X 3, Well developed/nourished, Other (appears in pain) - Neck Neck: Supple, no meningeal sign, No adenopathy - Cardiac Cardiac: RRR, No murmur - Respiratory Respiratory: Clear bilaterally - Abdomen Abdomen: Normal bowel sounds, Soft, Non distended, No organomegaly, Other (markedly tender left lower abd with guarding and some percussion tender. No rebound. Not tender right side. ) - Female Female : Deferred - Rectal Rectal: Deferred - Back Back: No spinal TTP, Other (left flank tender to percussion. ) - Derm Derm: Normal color, Warm and dry, No rash - Extremities Extremities: No tenderness to palpate, Normal ROM s pain, No edema, No calf tenderness / cord - Neuro Neuro: Alert and oriented X 3, No motor deficit, Normal speech Results - Vitals Vitals: Vital Signs - 24 hr 01/14/22 01/14/22 01/14/22 15:12 17:34 19:00 Temperature 37.7 C 36.6 C Heart Rate 117 H 93 90 Respiratory 20 14 16 Rate Blood Pressure 133/71 H 125/68 118/76 O2 Saturation 94 96 93 01/14/22 01/14/22 01/15/22 21:00 22:56 00:00 Temperature Heart Rate 87 77 71 Respiratory 16 13 12 Rate Blood Pressure 123/61 117/64 102/63 O2 Saturation 96 93 96 Oxygen O2 Source Room air - Labs Labs: Laboratory Tests 01/14/22 01/14/22 01/14/22 15:31 15:40 15:40 WBC 16.5 H RBC 4.83 Hgb 15.4 Hct 45.8 MCV 94.8 MCH 31.9 H MCHC 33.6 RDW 12.8 Plt Count 262 MPV 9.7 Neut # (Auto) 15.6 H Lymph # (Auto) 0.4 L [place] # (Auto) 0.4 Eos # (Auto) 0.0 Baso # (Auto) 0.1 Absolute Nucleated RBC 0.00 Nucleated RBC % 0.0 Sodium 141 Potassium 4.0 Chloride 105 Carbon Dioxide 24 Anion Gap 12.0 BUN 26 H Creatinine 1.1 H Estimated GFR (MDRD) 47 L Glucose 113 H Lactic Acid Calcium 9.8 Total Bilirubin 1.4 H AST 62 H ALT 37 Alkaline Phosphatase 111 Total Protein 7.2 Albumin 4.2 Globulin 3.0 Albumin/Globulin Ratio 1.4 Lipase 58 H Urine Color YELLOW Urine Clarity CLOUDY Urine pH 6.0 Ur Specific Hasty 1.015 Urine Protein 100 H Urine Glucose (UA) NEGATIVE Urine Ketones NEGATIVE Urine Occult Blood LARGE H Urine Nitrite POSITIVE H Urine Bilirubin NEGATIVE Urine Urobilinogen 1 (NORMAL) Ur Leukocyte Esterase SMALL H Urine RBC TNTC H Urine WBC 11-25 H Ur Squamous Epith Cells FEW Squamous Urine Bacteria Moderate H Ur Microscopic Review INDICATED Urine Culture Comments INDICATED SARS-CoV-2 (PCR) 01/14/22 01/14/22 16:55 21:03 WBC RBC Hgb Hct MCV MCH MCHC RDW Plt Count MPV Neut # (Auto) Lymph # (Auto) [place] # (Auto) Eos # (Auto) Baso # (Auto) Absolute Nucleated RBC Nucleated RBC % Sodium Potassium Chloride Carbon Dioxide Anion Gap BUN Creatinine Estimated GFR (MDRD) Glucose Lactic Acid 2.4 H Calcium Total Bilirubin AST ALT Alkaline Phosphatase Total Protein Albumin Globulin Albumin/Globulin Ratio Lipase Urine Color Urine Clarity Urine pH Ur Specific Hasty Urine Protein Urine Glucose (UA) Urine Ketones Urine Occult Blood Urine Nitrite Urine Bilirubin Urine Urobilinogen Ur Leukocyte Esterase Urine RBC Urine WBC Ur Squamous Epith Cells Urine Bacteria Ur Microscopic Review Urine Culture Comments SARS-CoV-2 (PCR) NOT DETECTED PD MEDICAL DECISION MAKING - ED course Complexity details: reviewed results (CT showing 4 mm left ureteral stone with hydronephrosis. No diverticulitis. Moderate stool. ), re-evaluated patient (improved pain after meds. Still with left lower abd tender. has infected stone with markers c/w sepsis. Will need transfer for Urology/Hospitalist. ), conside red differential (UTI versus diverticulitis, versus other. ), d/w patient, d/w sales development consultant (talked with Dr. Valera, [facility] for [facility], who says patient can be at any facility and defers finding transfer to us. ) ED course: at time of shift change, looking for other facility for transfer for Urology as well as Hositalist. NO beds available at several facilities. POLITICAL ANALYST still looking. Departure - Departure Clinical Impression: Ureterolithiasis UTI (urinary tract infection) Qualifiers: Urinary tract infection type: acute pyelonephritis Qualified Code(s): N10 - Acute pyelonephritis Leukocytosis Qualifiers: Leukocytosis type: unspecified Qualified Code(s): D72.829 - Elevated white blood cell count, unspecified Condition: Stable Record reviewed to determine appropriate education?: Yes
[2022-01-14] MEDS ORDERED: SODIUM CHLORIDE 0.9% 1,000 ML IV STA ×3 (16:43→22:16)
[2022-01-14] MEDS ORDERED: HYDROmorphone 1 MG/ML CARPUJECT IVP STA (16:43)
[2022-01-14] MEDS ORDERED: KETOROLAC 15 MG/ML VIAL IVP STA ×2 (16:43→22:28)
[2022-01-14] MEDS ORDERED: IOVERSOL 320 100 ML VIAL IVP ONE ×2 (17:08→19:02)
[2022-01-14] MEDS ORDERED: cefTRIAXone 1 GM VIAL IVP STA (17:39)
--- NOTE | 2022-01-14 18:39 | CT Report ---
PROCEDURE: CT abdomen and pelvis with contrast INDICATIONS: LLQ abd pain for 2 days, worsening CONTRAST: IV CONTRAST: Optiray 320 ml: 100 PO CONTRAST: *NO PO CONTRAST TECHNIQUE: After the administration of contrast, 5 mm thick sections acquired from the diaphragms to the sym physis. 5 mm thick coronal and sagittal reformats were acquired. For radiation dose reduction, the following was used: automated exposure control, adjustment of mA and/or kV according to patient size . COMPARISON: None. FINDINGS: Lower thorax: The lung bases are clear. Heart size normal. Moderate hiatal hernia. Liver: Hepatic fatty infiltration without focal mass lesion present. Biliary system: No calcified cholelithiasis or pericholecystic inflammation. No evidence of bile du ct dilatation. Pancreas: Unremarkable without mass or inflammation evident. Spleen: Normal in size and density. Adrenals: Normal morphology and density. Reproductive system: Unremarkable as visualized. Urinary system: 4 mm calculus present in the proximal left ureter results in mild left hydronephrosis . Bilateral renal cysts measure 3.3 cm and the left as well. No hydronephrosis on the right. Gastrointestinal system: The bowel appears unremarkable with no evidence of bowel obstruction or inf lammation. The stomach appears unremarkable. Appendix: No findings to suggest acute appendicitis. Peritoneal spaces: Calcified adenopathy is noted involving the right iliac chain. No free air. No f ree fluid. Vasculature: The IVC, aorta and iliac vasculature are unremarkable. Musculoskeletal: Normal bone mineralization. No acute fractures. Abdominal wall intact without gutierrez dence of ventral or inguinal hernias. IMPRESSION: 1. Small 4 mm calculus in the left proximal ureter results in mild left hydronephrosis. 2. Calcified right iliac retroperitoneal lymph nodes probably reflect prior granulomatous disease. 3. Multilevel degenerative disc disease and arthropathy. Reviewed by: Casey Champagne MD on 01/14/2022 5:38 PM AKZE Approved by: Casey Champagne MD on 01/14/2022 5:38 PM AKDT Station ID: [id number]
[2022-01-14] MEDS ORDERED: ALPRAZolam 0.25 MG TABLET PO STA (22:11)
[2022-01-15] MEDS ORDERED: DOCUSATE SODIUM 100 MG CAPSULE PO STA (00:20)
--- NOTE | 2022-01-15 06:20 | ED Physician Documentation ---
ED Addendum - Addendum Addendum: Patient signed out to me by Dr. Jaffe. She was found to be septic with an infected ureter stone. As we do not have urology services at this hospital, patient is awaiting transfer to a facility with urology. She has been placed on multiple wait lists including through [facility] with no current beds available. She has been comfortable all night. I have ordered for a.m. labs as well as daily 1 g of Rocephin.Patient will be signed out to oncoming physician, Dr. Dominguez. Patient still requires transfer.
[2022-01-15 06:34] LABS: BASOPHILS % (AUTO) 0.3 %; EOSINOPHILS % (AUTO) 0.1 %; HCT - HEMATOCRIT 36.7 % (37.0-47.0); HGB - HEMOGLOBIN 12.5 g/dL (12.0-16.0); LYMPHOCYTES % (AUTO) 7.7 %; MEAN CORPUSCULAR HEMOGLOBIN 32.7 pg (27.0-31.0); MEAN CORPUSCULAR HGB CONC 34.1 g/dL (32.0-36.0); MEAN CORPUSCULAR VOLUME 96.1 fL (81.0-99.0); MEAN PLATELET VOLUME 9.5 fL (7.9-10.8); MONOCYTES % (AUTO) 8.5 %; PLT - PLATELET COUNT 181 10^3/uL (130-450); RED BLOOD COUNT 3.82 10^6/uL (4.20-5.40); RED CELL DISTRIBUTION WIDTH 13.2 % (12.0-15.0); WHITE BLOOD COUNT 18.7 x10^3/uL (4.8-10.8)
[2022-01-15 06:35] LABS: ABNORMAL LYMPHS % (MANUAL) 0 %; BAND NEUTROPHILS % (MANUAL) 0 %
[2022-01-15 06:44] LABS: CALCIUM 8.3 mg/dL (8.5-10.3); CREATININE 0.9 mg/dL (0.4-1.0)
[2022-01-15 06:46] LABS: LYMPHOCYTES # (MANUAL) 1.3 10^3/uL (1.5-3.5); LYMPHOCYTES % (MANUAL) 7 %; MONOCYTES # (MANUAL) 0.9 10^3/uL (0.0-1.0); NEUTROPHILS # (MANUAL) 16.5 10^3/uL (1.5-6.6)
[2022-01-15 06:47] LABS: DIFFERENTIAL COMMENT MANUAL DIFFERENTIAL; PLATELET ESTIMATE, MANUAL NORMAL (130-450,000) (NORMAL); PLATELET MORPHOLOGY NORMAL APPEARANCE (NORMAL); RBC MORPHOLOGY (MULTIPLE) NORMAL APPEARANCE (NORMAL); WBC MORPHOLOGY (MULTIPLE) NORMAL APPEARANCE (NORMAL)
[2022-01-15 08:05] VITALS: BP 125/62
--- NOTE | 2022-01-15 08:55 | ED Physician Documentation ---
ED Addendum - Addendum Addendum: 01/15/22 08:54 Briefly 86-year-old woman with pyelonephritis due to obstruction from a 4 mm left proximal ureterolith. She is hemodynamically stable and pain is controlled. Signout from the overnight ED physician pending placement at a facility capable of urologic coverage and at 8:54 AM she was accepted by Dr. Tom Goff to [facility]. Disposition: Transferred to [facility] Condition serious but stable Diagnoses: 1. Pyelonephritis 2. Sepsis 3. Left proximal ureteral stone
[2022-01-15] MEDS ORDERED: cefTRIAXone 1 GM in SODIUM CHLORIDE 0.9% MINIBAG 100 ML IV SCH (09:00)
[2022-01-15] MEDS ORDERED: D5.45NS W/20 MEQ KCL 1,000 ML IV STA (09:33)
== END 2022-01-15 09:45 | disposition short-term general hospital (02) ==
LOC: ED 15:01
DX: N20.1 Calculus of ureter (principal); N10 Acute pyelonephritis; A41.9 Sepsis, unspecified organism; D72.829 Elevated white blood cell count, unspecified
CPT/HCPCS: 36415; 74177; 80048; 80053; 81001; 83605; 83690; 85025; 87040; 87086; 87181; 87635; 96374; 96375; 96376; 99284; 99285; A9270; J1170; Q9967; 81003

== ENCOUNTER 2022-01-15 09:44 | Outpatient (CLI) | payer MEDICARE | END 2022-01-15 09:45 | disposition short-term general hospital (02) | LOC: EMS 09:44 | PROVIDERS: ATTEND Emergency Medicine | DX: N20.1 Calculus of ureter (principal) | CPT/HCPCS: A0425; A0426 ==

== ENCOUNTER 2022-02-05 11:54 | Outpatient (CLI) | payer MEDICARE ==
[2022-02-05 12:39] LABS: BILIRUBIN,URINE NEGATIVE (NEGATIVE); GLUCOSE, URINE (UA) NEGATIVE (NEGATIVE); KETONES,URINE (UA) NEGATIVE (NEGATIVE); LEUKOCYTE ESTERASE, URINE SMALL (NEGATIVE); NITRITE,URINE NEGATIVE (NEGATIVE); OCCULT BLOOD,URINE LARGE (NEGATIVE); PROTEIN,URINE 100 mg/dL (NEGATIVE); UROBILINOGEN,URINE 0.2 (NORMAL) E.U./dL (NORMAL)
[2022-02-05 12:48] LABS: BACTERIA,URINE Few /HPF (None Seen); CLARITY,URINE CLOUDY (CLEAR); RBC,URINE TNTC /HPF (0-5); SQUAMOUS EPITHELIAL CELL,UR FEW Squamous (<= Few)
== END 2022-02-05 11:55 | disposition home or self-care (01) ==
LOC: LAB 11:54
PROVIDERS: ATTEND Surgery
DX: N20.1 Calculus of ureter (principal)
CPT/HCPCS: 81001; 81003; 87086

== ENCOUNTER 2022-02-25 11:57 | Outpatient (CLI) | payer MEDICARE ==
[2022-02-25 12:09] LABS: BILIRUBIN,URINE NEGATIVE (NEGATIVE); GLUCOSE, URINE (UA) NEGATIVE (NEGATIVE); KETONES,URINE (UA) NEGATIVE (NEGATIVE); LEUKOCYTE ESTERASE, URINE LARGE (NEGATIVE); NITRITE,URINE NEGATIVE (NEGATIVE); OCCULT BLOOD,URINE LARGE (NEGATIVE); PROTEIN,URINE >=300 mg/dL (NEGATIVE); UROBILINOGEN,URINE 0.2 (NORMAL) E.U./dL (NORMAL)
[2022-02-25 12:11] LABS: CLARITY,URINE CLOUDY (CLEAR)
[2022-02-25 12:16] LABS: BACTERIA,URINE Moderate /HPF (None Seen); RBC,URINE TNTC /HPF (0-5); SQUAMOUS EPITHELIAL CELL,UR FEW Squamous (<= Few); WBC,URINE >25 /HPF (0-5)
== END 2022-02-25 11:58 | disposition home or self-care (01) ==
LOC: LAB 11:57
PROVIDERS: ATTEND Urology
DX: N20.0 Calculus of kidney (principal)
CPT/HCPCS: 81001; 87086

== ENCOUNTER 2022-06-05 10:37 | Outpatient (CLI) | payer MEDICARE ==
[2022-06-05 16:19] LABS: BILIRUBIN,URINE NEGATIVE (NEGATIVE); GLUCOSE, URINE (UA) NEGATIVE (NEGATIVE); KETONES,URINE (UA) NEGATIVE (NEGATIVE); LEUKOCYTE ESTERASE, URINE TRACE (NEGATIVE); NITRITE,URINE NEGATIVE (NEGATIVE); OCCULT BLOOD,URINE NEGATIVE (NEGATIVE); PROTEIN,URINE NEGATIVE (NEGATIVE); UROBILINOGEN,URINE 0.2 (NORMAL) E.U./dL (NORMAL)
[2022-06-05 16:31] LABS: BACTERIA,URINE Moderate /HPF (None Seen); CLARITY,URINE HAZY (CLEAR); RBC,URINE 0-5 /HPF (0-5); SQUAMOUS EPITHELIAL CELL,UR MANY Squamous (<= Few)
[2022-06-05 17:21] LABS: ALBUMIN/GLOBULIN RATIO 1.3 (1.0-2.2); ALKALINE PHOSPHATASE 77 IU/L (42-121); ALT ALANINE AMINOTRANSFERASE 17 IU/L (10-60); AST ASPARTATE AMINOTRANSFERASE 19 IU/L (10-42); BILIRUBIN,TOTAL 1.1 mg/dL (0.2-1.0); BUN - BLOOD UREA NITROGEN 25 mg/dL (6-20); CALCIUM 9.3 mg/dL (8.5-10.3); CARBON DIOXIDE - CO2 29 mmol/L (21-32); CHLORIDE 102 mmol/L (101-111); CHOLESTEROL 264 mg/dL; CREATININE 1.1 mg/dL (0.4-1.0); GFR - MDRD 47 (>89); GLUCOSE 92 mg/dL (70-100); HDL CHOLESTEROL 66 mg/dL; LDL CHOLESTEROL,CALCULATED 175 mg/dL; LDL/HDL RATIO 2.7 (<4.4); SODIUM 139 mmol/L (135-145); TRIGLYCERIDES 114 mg/dL; VLDL CHOLESTEROL 23 mg/dL
== END 2022-06-05 10:38 | disposition home or self-care (01) ==
LOC: LAB.S 10:37
PROVIDERS: ATTEND Physician Assistant
DX: R10.30 Lower abdominal pain, unspecified (principal); N13.30 Unspecified hydronephrosis; N20.0 Calculus of kidney; K92.1 Melena; E78.00 Pure hypercholesterolemia, unspecified
CPT/HCPCS: 36415; 80053; 80061; 81001; 83721; 85025; 87086

== ENCOUNTER 2022-06-09 12:28 | Outpatient (CLI) | payer MEDICARE ==
--- NOTE | 2022-06-10 10:21 | Mammography Report ---
BILATERAL DIGITAL DIAGNOSTIC MAMMOGRAM 3D/2D: 06/09/2022 CLINICAL: Diffuse right breast pain, lt side due for bilateral. History of cancer on Rt side. Comparison is made to exams dated: 06/10/2021 mammogram, 04/13/2020 mammogram, 01/11/2019 mammogram, mammogram, 01/12/2018 mammogram, and 07/13/2017 mammogram - [facility]. There are scattered areas of fibroglandular density in both breasts (category b / 25%-50% glandular t issue). The right breast has post-operative findings. There is a new 0.5 cm oval equal density focal asymmetry in the right breast at 7 o'clock posterior d epth. No other significant masses, calcifications, or other findings are seen in either breast. IMPRESSION: INCOMPLETE: NEEDS ADDITIONAL IMAGING EVALUATION The new 0.5 cm oval equal density focal asymmetry in the right breast resembles a cyst or a lymph nod e and is indeterminate. An ultrasound is recommended for further evaluation and is scheduled to imme diately follow this examination. There is no abnormality seen in the right breast to correspond with the area of clinical concern and pain in the lateral aspect, however, an ultrasound is recommended for further evaluation and is sched uled to immediately follow this examination. This exam was interpreted at Station ID: [id number]. NOTE: For mammograms, a report in lay terms will be sent to the patient. Approximately 15% of breast malignancies will not be visualized mammographically. In the management of a palpable breast mass, a negative mammogram must not discourage biopsy of a clinically suspicious lesion. Electronically Signed By: Victorino Donis M.D. aty/:06/09/2022 13:17:02 ACR BI-RADS Category 0: Incomplete 3340F PARENCHYMAL PATTERN: (A) - The breast(s) demonstrate(s) scattered fibroglandular densities. BI-RADS CATEGORY: (0) - 0 Ultrasound [id number] Immediate follow-up LATERALITY: (R)
--- NOTE | 2022-06-10 10:21 | Ultrasound Report ---
LIMITED ULTRASOUND OF RIGHT BREAST AND AXILLA: 06/09/2022 CLINICAL: Diffuse right breast pain. Comparison is made to exams dated: 06/09/2022 mammogram, 06/10/2021 mammogram, 04/13/2020 mammogram, mammogram, 07/12/2018 mammogram, and 01/12/2018 mammogram - [facility]. Color flow ultrasound of the right breast upper outer quadrant and axilla regions was performed. Gra y scale images of the real-time examination were reviewed. There is a benign 0.4 cm x 0.4 cm x 0.4 cm oval cyst in the right breast at 8 o'clock middle depth 8 cm from the nipple. This oval cyst is anechoic. This correlates with mammography findings. Color f low imaging demonstrates that there is no vascularity present. IMPRESSION: BENIGN There is no sonographic evidence of malignancy. The 0.4 cm x 0.4 cm x 0.4 cm oval simple cyst in the right breast is benign. There is no abnormality seen in the right breast to correspond with the area of clinical concern and pain in the outer aspect, however, recommend clinical follow up for persistent or worsening symptoms , or development of any clinically suspicious findings. A 1 year screening mammogram is recommended. Findings and recommendations were conveyed to the patient during today's evaluation. This exam was interpreted at Station ID: [id number]. Electronically Signed By: Victorino Donis M.D. aty/:06/09/2022 13:47:26 Ultrasound BI-RADS: 2 Benign BI-RADS CATEGORY: (2) - 2 RECOMMENDATION: (ANNUAL) - Recommend routine annual screening mammography. [id number] 1 year screening LATERALITY: (B)
== END 2022-06-09 12:29 | disposition home or self-care (01) ==
LOC: DI 12:28
PROVIDERS: ATTEND Internal Medicine Hematology & Oncology
DX: N64.4 Mastodynia (principal); N60.01 Solitary cyst of right breast; Z85.3 Personal history of malignant neoplasm of breast

== ENCOUNTER 2023-07-13 14:53 | Outpatient (CLI) | payer MEDICARE ==
--- NOTE | 2023-07-14 09:38 | Mammography Report ---
BILATERAL DIGITAL SCREENING MAMMOGRAM 3D/2D: 07/13/2023 CLINICAL: Routine screening. Personal history of right breast cancer. Comparison is made to exams dated: 06/09/2022 ultrasound, 06/09/2022 mammogram, 06/10/2021 mammogram, a nd 04/13/2020 mammogram - [facility]. There are scattered areas of fibroglandular density in both breasts (category b / 25%-50% glandular t issue). There are a benign appearing focal asymmetry and calcification in the right breast. There also are b enign appearing vascular calcifications in the left breast. Additionally, there are benign post oper ative findings in the right breast. There are mole markers on both breasts. No significant masses, calcifications, or other findings are seen in either breast. There has been no significant interval change. IMPRESSION: BENIGN There is no mammographic evidence of malignancy. A 1 year screening mammogram is recommended. This exam was interpreted at Station ID: [id number]. NOTE: For mammograms, a report in lay terms will be sent to the patient. Approximately 15% of breast malignancies will not be visualized mammographically. In the management of a palpable breast mass, a negative mammogram must not discourage biopsy of a clinically suspicious lesion. Electronically Signed By: Addison [email or web address]:07/14/2023 08:44:45 letter sent: No_Letter ACR BI-RADS Category 2: Benign Finding(s) 3342F PARENCHYMAL PATTERN: (A) - The breast(s) demonstrate(s) scattered fibroglandular densities. BI-RADS CATEGORY: (2) - 2 Mammogram [id number] 1 year screening LATERALITY: (B)
== END 2023-07-13 14:54 | disposition home or self-care (01) ==
LOC: DI.S 14:53
PROVIDERS: ATTEND Physician Assistant
DX: Z12.31 Encounter for screening mammogram for malignant neoplasm of breast (principal); R92.323 Mammographic fibroglandular density, bilateral breasts; Z85.3 Personal history of malignant neoplasm of breast

== ENCOUNTER 2023-08-11 09:14 | Outpatient (CLI) | payer MEDICARE ==
[2023-08-11 14:42] LABS: BASOPHILS % (AUTO) 0.5 %; EOSINOPHILS # (AUTO) 0.2 10^3/uL (0.0-0.7); EOSINOPHILS % (AUTO) 2.9 %; HCT - HEMATOCRIT 43.8 % (37.0-47.0); LYMPHOCYTES # (AUTO) 2.6 10^3/uL (1.5-3.5); LYMPHOCYTES % (AUTO) 39.3 %; MEAN CORPUSCULAR VOLUME 97.1 fL (81.0-99.0); MEAN PLATELET VOLUME 10.3 fL (7.9-10.8); MONOCYTES # (AUTO) 0.7 10^3/uL (0.0-1.0); MONOCYTES % (AUTO) 9.9 %; NEUTROPHILS # (AUTO) 3.1 10^3/uL (1.5-6.6); NEUTROPHILS % (AUTO) 47.4 %; PLT - PLATELET COUNT 274 10^3/uL (130-450); RED BLOOD COUNT 4.51 10^6/uL (4.20-5.40); RED CELL DISTRIBUTION WIDTH 12.7 % (12.0-15.0); WHITE BLOOD COUNT 6.6 x10^3/uL (4.8-10.8)
[2023-08-11 16:04] LABS: ALBUMIN 4.1 g/dL (3.2-5.5); ALBUMIN/GLOBULIN RATIO 1.6 (1.0-2.2); ALKALINE PHOSPHATASE 78 IU/L (42-121); ALT ALANINE AMINOTRANSFERASE 12 IU/L (10-60); AST ASPARTATE AMINOTRANSFERASE 16 IU/L (10-42); BILIRUBIN,TOTAL 0.8 mg/dL (0.2-1.0); BUN - BLOOD UREA NITROGEN 18 mg/dL (6-20); CALCIUM 9.7 mg/dL (8.5-10.3); CARBON DIOXIDE - CO2 30 mmol/L (21-32); CHLORIDE 106 mmol/L (101-111); CHOL/HDL RATIO 4.1 (<4.4); CHOLESTEROL 253 mg/dL; CREATININE 1.1 mg/dL (0.6-1.3); GFR - MDRD 47 (>89); GLUCOSE 97 mg/dL (74-104); HDL CHOLESTEROL 62 mg/dL; LDL CHOLESTEROL,CALCULATED 154 mg/dL; LDL/HDL RATIO 2.5 (<4.4); SODIUM 141 mmol/L (135-145); TOTAL PROTEIN 6.6 g/dL (6.4-8.9); TRIGLYCERIDES 186 mg/dL (48-352); VLDL CHOLESTEROL 37 mg/dL
[2023-08-11 16:18] LABS: THYROID STIMULATING HORMONE 1.43 uIU/mL (0.34-5.60)
== END 2023-08-11 09:15 | disposition home or self-care (01) ==
LOC: LAB.S 09:14
PROVIDERS: ATTEND Physician Assistant
DX: E78.5 Hyperlipidemia, unspecified (principal)
CPT/HCPCS: 36415; 80053; 80061; 83721; 84443; 85025